=== PATIENT | male | born 1975 | race Caucasian/White ===

== ENCOUNTER 2021-04-29 11:57 | Inpatient (IN) ==
[2021-04-29] MEDS ORDERED: Al Hydrox/Mg Hydrox/Simet LIQ 30 ML UDC PO PRN (16:00)
[2021-04-29] MEDS ORDERED: Nicotine Lozenge mini 2 MG LOZNG.MINI MT PRN (16:00)
[2021-04-29] MEDS ORDERED: Nicotine GUM 2MG FRUIT FLAVOR PO PRN (16:00)
[2021-04-30] MEDS: Vitamin THERAPEUTIC TAB PO SCH (12:12)
[2021-04-30 14:29] LABS: Urine Appearance Clear; Urine Bilirubin Negative (Negative); Urine Blood Negative (Negative); Urine Color Amber; Urine Glucose Negative (Negative); Urine Ketones Negative (Negative); Urine Nitrite Negative (Negative); Urine Protein Negative (Negative); Urine Specific Gravity 1.026 (1.002-1.030); Urine Urobilinogen Negative (Negative)
[2021-05-01] MEDS: Vitamin THERAPEUTIC TAB PO SCH (08:58)
[2021-05-02] MEDS: Vitamin THERAPEUTIC TAB PO SCH (08:48)
[2021-05-03] MEDS: Vitamin THERAPEUTIC TAB PO SCH (09:43)
[2021-05-04 08:41] VITALS: BP 143/83
[2021-05-04] MEDS: Vitamin THERAPEUTIC TAB PO SCH (09:17)
== END 2021-05-04 12:18 | disposition home or self-care (01) | DRG 751 ==
LOC: EDBD → ED 11:57 → EDHOLD 16:47 → BSU 16:55
PROVIDERS: ADMIT Registered Nurse Psychiatric/Mental Health; ATTEND Student in an Organized Health Care Education/Training Program